=== PATIENT | female | born 1995 | race Caucasian/White ===

== ENCOUNTER → 2018-01-09 | Outpatient (CLI) | payer OTHER ==
[2016-02-21 15:11] VITALS: BMI 27.8
[~2018-01-09] MED LIST: CITA-139 PO; DOCU240C67 PO; FOLI0.8C PO; HYDR-4228 PO; IBUP800T37 PO; Lanolin TP; PER PO; PREN1TAB50 PO
[2018-01-09 16:45] LABS: PLATELET COUNT, AUTOMATED 256 K/uL (150-450)
== END ==
LOC: LAB 16:23
PROVIDERS: ATTEND Nurse Practitioner Family
DX: F32.9 Major depressive disorder, single episode, unspecified (principal); Z82.49 Family history of ischemic heart disease and other diseases of the circulatory system
CPT/HCPCS: 36415; 82040; 82247; 82310; 82374; 82435; 82565; 82947; 84075; 84132; 84155; 84295; 84443; 84450; 84460; 84520; 85025

== ENCOUNTER → 2018-07-20 | Outpatient (CLI) | payer OTHER ==
[2016-02-21 15:11] VITALS: BMI 27.8
[~2018-07-20] MED LIST changes: -CITA-139 PO; +CITA-145 PO; +FOLI0.4T56 PO; +PREN-127 PO
[2018-07-20 11:59] LABS: PLATELET COUNT, AUTOMATED 263 K/uL (150-450)
== END ==
LOC: LAB 10:57
PROVIDERS: ATTEND Obstetrics & Gynecology
DX: Z34.91 Encounter for supervision of normal pregnancy, unspecified, first trimester (principal); R82.79 Other abnormal findings on microbiological examination of urine
CPT/HCPCS: 36415; 81001; 85025; 86592; 86703; 86762; 86850; 86900; 86901; 87088; 87340

== ENCOUNTER → 2018-10-08 | Outpatient (CLI) | payer OTHER ==
[2016-02-21 15:11] VITALS: BMI 27.8
[~2018-10-08] MED LIST changes: +AMOX-559 PO
--- NOTE | 2018-10-08 17:52 | RADIOLOGY IMAGING REPORT ---
FACILITY: [facility] - [place] PATIENT NAME: Charissa Sosa : 1995 MR: [id number] V: [id number] EXAM DATE: ORDERING PHYSICIAN: LISS CALDERÓN TECHNOLOGIST: Location: [facility] [place] Patient: Charissa Sosa : 1995 Visit/Account:[id number] Date of Sevice: 10/08/2018 [facility] OB ANATOMICAL SURVEY History: survey: 20 weeks and one day by LMP ADDITIONAL HISTORY: none COMPARISON STUDIES: none FINDINGS: Intrauterine gestations: one presentation: Variable heart rate: 144 bpm Amniotic fluid volume: KENY 16.2 cm; MVP 4.7 cm Placenta: Posterior. No evidence of previa. Maternal adnexa: negative Cervix: closed Anatomic Survey: Neural anatomy and spinal axis appear unremarkable. Face lips and nose are visualized. Four-chambe r heart and outflow tracks, stomach, kidneys, bladder , umbilical cord, normal cord insertion seen. 2 arms and 2 legs visualized. anatomy unremarkable. Biometrics: BPD: 4.9 cm corresponding to 20 weeks six days 76% HC: 17.9 cm corresponding to 20 weeks three days 51% AC: 16.0 cm corresponding to 21 weeks one day 74% FL: 3.3 cm corresponding to 20 weeks two days 43% Measurements are concordant or within normal variance with composite sonographic age of 20 weeks and five days within normal variance of clinical dates.. Estimated weight (EFW): 367 grams +/- 54 grams . 73rd percentile based on clinical dates. IMPRESSION: Single living intrauterine gestation in variable presentation with biometric measurements and composi te sonographic age within normal variance of previously established clinical dates. anatomy: Unremarkable Report Dictated By: Jeb Pina MD at 10/08/2018 5:43 PM Report E-Signed By: Jeb Pina MD at 10/08/2018 5:49 PM WSN:[email or web address]
== END ==
LOC: RAD 09:15
PROVIDERS: ATTEND Obstetrics & Gynecology
DX: O09.92 Supervision of high risk pregnancy, unspecified, second trimester (principal)